=== PATIENT | female | born 1950 | race African-American/Black ===

== ENCOUNTER 2025-05-22 14:51 | Emergency (ER) | payer BC ==
[2025-05-22] MEDS ORDERED: Cyclobenzaprine 10 MG TAB ONE (16:42)
[2025-05-22] MEDS ORDERED: HYDROcodone/Acetaminophen 5/325 mg Tablet ONE (16:59)
== END 2025-05-22 17:05 | disposition home or self-care (01) ==
LOC: CSHERS 14:51
DX: M54.42 Lumbago with sciatica, left side (principal)
CPT/HCPCS: 99283; J1100